=== PATIENT | female | born 1975 | race Caucasian/White ===

== ENCOUNTER 2019-10-09 15:21 | Emergency (ER) | payer OTHER, SELFPAY ==
[2019-10-09 15:41] VITALS: BP 150/87; PULSE 111; RESP 20; TEMP 36.7; O2SAT 98
--- NOTE | 2019-10-09 16:22 | ED.GENADULT ---
HPI - General Adult General Chief complaint: Unspecified Stated complaint: needs refills of meds - new dr not taking pts Time Seen by Provider: 10/09/19 16:23 Source: patient and RN notes reviewed Mode of arrival: ambulatory Limitations: no limitations History of Present Illness HPI narrative: 44 year old female who presents to [facility] care with complaints of needing blood pressure medication and Ziprasidone. Patient states that she had an appointment made to establish care with Dr Sawant for tomorrow but they called and canceled her appointment and are to rescheduled it later and she needs medication filled till she can be seen. Patient did see brood station manager thru [facility] but patient has been discontinued from her service, patient states that she missed appointments due to moving. Patient denies any cough, congestion, recent fevers or any ill symptoms. MD complaint: medication refill Related Data Home Medications Medication Instructions Recorded Confirmed bupropion HCl 100 mg PO DAILY 10/09/19 10/09/19 clonidine HCl 0.05 mg PO DAILY 10/09/19 10/09/19 fluticasone propionate [Flonase 1 spray INTRANASAL BID 10/09/19 10/09/19 Allergy Relief] lisinopril 10 mg PO DAILY 10/09/19 10/09/19 naltrexone 50 mg PO DAILY 10/09/19 10/09/19 ziprasidone HCl 60 mg PO BID 10/09/19 10/09/19 Allergies Allergy/AdvReac Type Severity Reaction Status Date / Time No Known Allergies Allergy Unknown Unverified 08/19/18 16:25 Review of Systems Review of Systems: Narrative: CONSTITUTIONAL: Denies fever, chills, or sweats. EYES: Denies visual changes, redness, or discharge. ENT: Denies rhinorrhea, congestion, sore throat, or otalgia. CARDIOVASCULAR: Denies chest pain, palpitations, or edema. RESPIRATORY: Denies cough or dyspnea. GASTROINTESTINAL: Denies abdominal pain, nausea, vomiting, or diarrhea. GENITOURINARY: Denies dysuria or hematuria. SKIN: Denies rash or itching. MUSCULOSKELETAL: Denies back pain, joint pain, or myalgia. NEUROLOGIC: Denies headache, numbness, or weakness. PSYCHIATRIC:positive history of anxiety or depression. All systems reviewed & are unremarkable except as noted in HPI and below PMFSH Past Medical History Medical History (Updated 10/11/19 @ 19:45 by Kimmie Yin NP) Anxiety Bipolar 1 disorder Bronchitis Colitis Hypertension Kidney stone Pneumonia Surgical History Surgical History (Updated 10/11/19 @ 19:41 by Kimmie Yin NP) History of cholecystectomy History of tubal ligation Social History Social History (Updated 10/11/19 @ 19:42 by Kimmie Yin NP) Smoking packs per day: 1 Smoking cigarettes per day: 20.0 Years smoked: 26 Smoking pack-years: 26.00 Smoking status: Heavy tobacco smoker Alcohol intake: unknown Living arrangements: with family Gender identity (if verbalized by the patient): Female Comments At time of signature, agree with nursing past medical, surgical, social history. There is no relevant family history pertinent to the presenting complaint Exam Narrative: Exam Narrative: GENERAL: Well-appearing, well-nourished, and in no acute distress. HEAD: Normocephalic, atraumatic. EYES: PERRLA and EOMI. ENT: Nares clear, no rhinorrhea or epistaxis. Mucous membranes moist. NECK: Supple.no lymphadenopathy CHEST: Clear to auscultation. No respiratory distress. denies any dyspnea, SAO2 98% on room air HEART: Regular rate and rhythm. No murmur heard. Normal peripheral pulses. ABDOMEN: Soft, nontender, nondistended, normal active bowel sounds. EXTREMITIES: Normal range of motion. No edema. SKIN: Warm, dry, no rash. NEURO: No focal deficits. Alert and oriented x3. Course Vital Signs Vital signs: Vital Signs Temperature 36.7 C 10/09/19 15:41 Pulse Rate 111 H 10/09/19 15:41 Respiratory Rate 20 10/09/19 15:41 Blood Pressure 150/87 H 10/09/19 15:41 Pulse Oximetry 98 10/09/19 15:41 Temperature 36.7 C 10/09/19 15:41 Pulse Rate 111 H 10/08
== END 2019-10-09 16:45 | disposition home or self-care (01) ==
PROVIDERS: Emergency Provider Registered Nurse; PCP Family Medicine
DX: I10 Essential (primary) hypertension (principal); F17.200 Nicotine dependence, unspecified, uncomplicated
CPT/HCPCS: 99211; 99213; G0463

== ENCOUNTER 2020-12-02 16:13 | Emergency (ER) | payer OTHER, SELFPAY ==
[2020-12-02 16:20] VITALS: BP 136/71; PULSE 104; RESP 20; TEMP 36.7; O2SAT 99
--- NOTE | 2020-12-02 16:30 | ED.GENADULT ---
HPI - General Adult General Chief complaint: Upper Respiratory Infection Stated complaint: sore throat up into ears Time Seen by Provider: 12/02/20 17:10 Source: patient and RN notes reviewed Mode of arrival: ambulatory Limitations: no limitations History of Present Illness HPI narrative: 45-year-old female presents with complaints of upper respiratory infection, facial pressure, sore throat, and right otalgia for 1 day. Monica report increasing RT otalgia, intermittent cough, and feeling ill throughout the day. Ibuprofen last on 12/01/2020 with little relief. Sore throat is bilateral. No high fevers, drooling, neck or throat swelling. Hurts to swallow. Exacerbation factors consist of smoke exposure, eating, and drinking. No rhinorrhea. Nasal congestion. No voice change. No nausea, vomiting, or abdominal pain. Tolerating liquids well. Denies dyspnea, difficulty swallowing, foreign body sensation, and rash. Remains active. The patient reports she have not been diagnosed with COVID-19. The patient reports she is not waiting for the results of a COVID-19 lab test. The patient reports she do not have chills, weakness, or fatigue. The patient reports she do not have a new or worsening cough. Denies chest pain. The patient reports she do not have any loss of taste or smell or diarrhea. Denies recent traveling. Denies concerns for COVID-19 or exposures been home with limited outdoor exposure except for essential household needs and return home. At this time, patient is not suspected of having COVID-19. Some parts of this dictation were generated by voice recognition software and may contain typographical and/or grammatical inaccuracies. Related Data Home Medications Medication Instructions Recorded Confirmed bupropion HCl 100 mg PO BID 10/09/19 12/02/20 fluticasone propionate [Flonase 1 spray INTRANASAL BID 10/09/19 12/02/20 Allergy Relief] clonazepam 1 mg PO BID 12/02/20 12/02/20 lisinopril 20 mg PO DAILY 12/02/20 12/02/20 ziprasidone HCl 60 mg PO BID 12/02/20 12/02/20 Allergies Allergy/AdvReac Type Severity Reaction Status Date / Time No Known Allergies Allergy Unknown Verified 12/02/20 16:37 Review of Systems Review of Systems: Narrative: CONSTITUTIONAL: Denies fever, chills, sweats. EYES: Denies visual changes, redness, discharge. ENT: Denies rhinorrhea. Complains of RT otalgia, facial pressure, sore throat, congestion. CARDIOVASCULAR: Denies chest pain, palpitations, edema. RESPIRATORY: Denies dyspnea, wheezing. Complains of intermittent cough. GASTROINTESTINAL: Denies abdominal pain, nausea, vomiting, diarrhea. SKIN: Denies rash or itching. MUSCULOSKELETAL: Denies acute back pain, joint pain, or myalgia. NEUROLOGIC: Denies numbness or focal weakness. PSYCHIATRIC: Denies anxiety or depression. All systems reviewed & are unremarkable except as noted in HPI and below. [facility] Past Medical History Medical History Anxiety Bipolar 1 disorder Bronchitis Colitis Hypertension Kidney stone Pneumonia Surgical History Surgical History History of cholecystectomy History of tubal ligation Family History Family History (Updated 12/02/20 @ 18:23 by NERIS Ramos) Father Medical history unknown Mother Hypertension Social History Social History (Updated 12/02/20 @ 18:26 by NERIS Ramos) Smoking packs per day: 1 Smoking cigarettes per day: 20.0 Years smoked: 28 Smoking pack-years: 28.00 Smoking status: Heavy tobacco smoker Tobacco type: cigarettes Second hand tobacco smoke exposure: Yes Alcohol intake: never Substance use: never Living arrangements: with family Occupation/Education: unemployed Gender identity (if verbalized by the patient): Female Comments At time of signature, agree with nurse past medical, surgical, social, and fa
== END 2020-12-02 17:40 | disposition home or self-care (01) ==
PROVIDERS: Emergency Provider Nurse Practitioner Family; PCP Family Medicine
DX: J01.90 Acute sinusitis, unspecified (principal); J02.9 Acute pharyngitis, unspecified; F17.210 Nicotine dependence, cigarettes, uncomplicated; I10 Essential (primary) hypertension; F41.9 Anxiety disorder, unspecified
CPT/HCPCS: 87081; 87880; 99213; G0463

== ENCOUNTER 2021-08-04 13:45 | Emergency (ER) | payer OTHER, SELFPAY ==
[2021-08-04 14:05] VITALS: BP 146/87; PULSE 90; RESP 18; TEMP 36.8; O2SAT 100
== END 2021-08-04 14:30 | disposition left against medical advice (07) ==
LOC: EXPBETH 13:47
PROVIDERS: Emergency Provider Nurse Practitioner
DX: R35.0 Frequency of micturition (principal)
CPT/HCPCS: 81003; 99199

== ENCOUNTER 2021-08-06 09:25 | Emergency (ER) | payer OTHER, SELFPAY ==
[2021-08-06 09:29] VITALS: BP 144/90; PULSE 115; RESP 20; TEMP 37.3; O2SAT 98
--- NOTE | 2021-08-06 10:06 | ED.FEMALEGU ---
HPI - Female Genitourinary General Chief complaint: Urogenital-Female Stated complaint: Uti Time Seen by Provider: 08/06/21 10:00 Source: patient and RN notes reviewed Mode of arrival: ambulatory Limitations: no limitations History of Present Illness HPI Narrative: 46-year-old female presents with concern for urinary tract infection. She reports for 3 days she has had left kidney pain, dysuria, frequency, suprapubic pressure. Reports history of UTIs, her last UTI was 2 weeks ago, she feels like the symptoms did not completely resolve. She took Macrobid. She denies abdominal pain, fever, body aches, nausea. Patient reports taking Azo with some relief of symptoms MD elicited complaint: UTI Related Data Home Medications Medication Instructions Recorded Confirmed bupropion HCl 100 mg PO BID 10/09/19 08/04/21 clonazepam 1 mg PO BID 12/02/20 08/04/21 lisinopril 20 mg PO DAILY 12/02/20 08/04/21 ziprasidone HCl 60 mg PO BID 12/02/20 08/04/21 omeprazole 08/06/21 08/06/21 Allergies Allergy/AdvReac Type Severity Reaction Status Date / Time Sulfa (Sulfonamide Allergy Unknown Verified 08/06/21 09:48 Antibiotics) Review of Systems Review of Systems: CONSTITUTIONAL: Denies malaise, chills, sweats, or fever. CARDIOVASCULAR: Denies chest pain, palpitations, or edema. RESPIRATORY: Denies cough or dyspnea. GASTROINTESTINAL: Denies abdominal pain, nausea, vomiting, diarrhea GENITOURINARY: Reports dysuria, frequency, suprapubic pressure. Denies flank pain or hematuria. SKIN: Denies rash or itching. MUSCULOSKELETAL: Denies back pain or myalgia. All systems reviewed & are unremarkable except as noted in HPI and below PMFSH Past Medical History Medical History Anxiety Bipolar 1 disorder Bronchitis Colitis Hypertension Kidney stone Pneumonia Surgical History Surgical History History of cholecystectomy History of tubal ligation Family History Family History (Updated 12/02/20 @ 18:23 by NERIS Ramos) Father Medical history unknown Mother Hypertension Social History Social History (Updated 12/02/20 @ 18:26 by NERIS Ramos) Smoking packs per day: 1 Smoking cigarettes per day: 20.0 Years smoked: 28 Smoking pack-years: 28.00 Smoking status: Heavy tobacco smoker Tobacco type: cigarettes Second hand tobacco smoke exposure: Yes Alcohol intake: never Substance use: never Gender identity (if verbalized by the patient): Female Comments At time of signature, agree with nursing past medical, surgical, social and family history. There is no relevant family history pertinent to the presenting complaint Exam Narrative: GENERAL: Well-appearing, well-nourished, and in no acute distress. HEAD: Normocephalic. EYES: PERRLA, conjunctivae clear. NECK: Supple. No lymphadenopathy CHEST: Clear to auscultation. No respiratory distress. HEART: Regular rate and rhythm. ABDOMEN: Soft, nontender upon palpation, nondistended, normal active bowel sounds, no palpable or pulsatile masses, no guarding. No CVA tenderness SKIN: Warm, dry, no rash. NEURO: Alert and oriented x3. PSYCH: Normal mood and affect Course Course Emergency Course: Patient is aware of diagnosis, understands and agrees to treatment plan. Anticipatory guidance given. Patient agrees to follow-up as directed and is aware of reasons to seek care at the emergency department. Portions of this record may have been created with voice recognition software Level of Care: Express Care Visit Vital Signs Vital signs: Vital Signs Temperature 99.2 F 08/06/21 09:29 Pulse Rate 115 H 08/06/21 09:29 Respiratory Rate 20 08/06/21 09:29 Blood Pressure 144/90 H 08/06/21 09:29 Pulse Oximetry 98 08/06/21 09:29 Temperature 99.2 F 08/06/21 09:29 Pulse Rate 115 H 08/06/21 09:29 Respiratory Rate 20
== END 2021-08-06 10:20 | disposition home or self-care (01) ==
PROVIDERS: Emergency Provider Nurse Practitioner
DX: R30.0 Dysuria (principal); R35.0 Frequency of micturition; R10.30 Lower abdominal pain, unspecified; F41.9 Anxiety disorder, unspecified; F32.A Depression, unspecified; I10 Essential (primary) hypertension; F17.210 Nicotine dependence, cigarettes, uncomplicated
CPT/HCPCS: 81003; 87086; 99213; G0463